=== PATIENT | male | born 1955 | race Caucasian/White ===

== ENCOUNTER 2018-03-23 21:29 | Emergency (ER) | payer OTHER ==
[~2018-03-23 21:29] MED LIST: AMLODIPINE-BEN1 EAC2 PO; AMOXICILLIN500 M3 PO; ANTIVERT12.5 M1 PO; DIAZEPAM5 M1 PO; DILAUDID2 MG PO; E-400400 IU PO; FLOMAX(MONOGRA0.4 MG PO; IBUPROFEN800 M1 PO; LIDOCAINE HCL V15 ML PO; LIORESAL 10MG T10 MG PO; MOTRIN 600 MG600 MG PO; MOTRIN800 MG PO; MULTI-DAY VITA1 EACH PO; PERCOCET 325 MG1 TA2 PO; PERCOCET 5-3251 EACH PO; VITAB121000 PO; VITAMIN A PO; VITAMIN B COMPL1 CAP PO; ZOFRAN ODT4 MG PO; [UNRECOGNIZED DRUG - OTHER] PO
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
--- NOTE | 2018-03-24 00:11 | CT SCAN REPORT ---
EXAMINATION: NONCONTRAST HEAD CT NONCONTRAST CERVICAL SPINE CT INDICATION INFORMATION: Trauma, seizure COMPARISON: 02/28/2016 TECHNIQUE: Separate noncontrast CT examinations of the head and cervical spine were performed. Coronal head CT images and coronal and sagittal cervical spine images were created at the technologist workstation. DLP: 965.86 mGy-cm FINDINGS: Head: There is no evidence of acute intracranial hemorrhage or territorial infarction. No abnormal mass-effect or midline shift is seen. [place] to white matter differentiation is well preserved. No extra-axial fluid collections are identified. The ventricles are normal in size. There is no abnormal attenuation within the brain parenchyma. No acute fracture is seen. Left-sided craniotomy changes again noted. The mastoid air cells and visualized portions of the paranasal sinuses are well-aerated. Cervical spine: There is anatomic alignment of the vertebral bodies and posterior elements. Vertebral body heights are maintained. There is disc space narrowing throughout the mid to lower cervical spine with associated endplate osteophyte formation. No evidence of acute fracture. There is a chronic pseudoarticulation of the right lateral mass of C1 with the skull base. No prevertebral soft tissue swelling. Visualized portions of the lung apices are unremarkable. The thyroid gland is unremarkable. IMPRESSION: 1. Head: No acute intracranial findings. 2. Cervical spine: Degenerative changes of the mid to lower cervical spine. No acute findings identified.
[2018-03-24 00:28] LABS: ABSOLUTE BASOPHIL COUNT 0 /CUMM (0.0-0.2); ABSOLUTE EOSINOPHIL COUNT 0.4 /CUMM (0.0-0.7); ABSOLUTE GRANULOCYTE CT 3.4 /CUMM (1.4-6.5); ABSOLUTE LYMPH COUNT 2.1 /CUMM (1.2-3.4); ABSOLUTE MONOCYTE COUNT 0.9 /CUMM (0.10-0.60); BASOPHIL % 0.5 % (0.0-2.0); EOSINOPHIL % 5.1 % (0-5); GRANULOCYTE % 50.2 % (42.2-75.2); HEMATOCRIT 38.3 % (42-52); MEAN CORPUSCULAR HGB 31.6 PG (27.0-31.0); MEAN CORPUSCULAR HGB CONC 35.5 G/DL (33.0-37.0); MEAN CORPUSCULAR VOLUME 89.1 FL (80.0-94.0); PLATELET COUNT 223 /CUMM (130-400); RBC DISTRIBUTION WIDTH 13.5 % (11.5-14.5); WHITE BLOOD CELL COUNT 6.8 /CUMM (4.8-10.8)
--- NOTE | 2018-03-24 00:28 | CT SCAN REPORT ---
EXAM: NONCONTRAST CT OF THE CHEST; NONCONTRAST CT OF THE ABDOMEN AND PELVIS INDICATION: Trauma, seizure COMPARISON: 02/28/2016 TECHNIQUE: No IV contrast was utilized. Multidetector helical imaging was performed through the chest, abdomen, and pelvis. Coronal and sagittal reformatted images were created at the technologist workstation. DLP: 795.44 mGy-cm FINDINGS: Chest: There is minimal atelectasis in the lingula. No additional consolidation bilaterally. There is redemonstration of a few juxta fissural nodules in the right lung which are without significant change from prior and most suggestive of lymph nodes. A prior left lower lobe nodule from 02/28/2016 is no longer present. No pneumothorax or pleural effusion. The visualized thyroid gland is unremarkable. There are subcentimeter mediastinal lymph nodes within the range of normal variation. Cardiac size is within normal limits; no pericardial effusion. The ascending aorta appears mildly prominent, measuring approximately 4.0 cm in diameter. No axillary lymphadenopathy is present. Abdomen/Pelvis: The liver demonstrate hypoattenuation consistent with steatosis. No intrahepatic biliary ductal dilatation. The gallbladder is unremarkable. The unenhanced spleen, pancreas, and adrenal glands are within normal limits. The unenhanced kidneys are unremarkable without hydronephrosis. No renal or ureteral calculi are present. The urinary bladder is unremarkable. The prostate and seminal vesicles are unremarkable. A curvilinear radiodense structure in the lumen of the distal stomach presumably represents ingested material. The small and large bowel are unremarkable without evidence of obstruction or pericolonic inflammatory change. The appendix is unremarkable. No free fluid or free air is identified. There is mild scattered atherosclerotic calcification. No retroperitoneal or pelvic lymphadenopathy is seen. There are severe degenerative changes of the bilateral glenohumeral joints. No acute fracture is seen. A few chronic right rib deformities are again demonstrated. Multilevel degenerative changes are present in the spine. Vertebral body heights and osseous alignment are maintained. IMPRESSION: 1. No acute traumatic findings identified in the chest, abdomen, or pelvis. 2. Mildly prominent ascending aorta measuring approximately 4.0 cm in diameter. 3. Hepatic steatosis.
--- NOTE | 2018-03-24 00:42 | RADIOLOGY REPORT ---
EXAMINATION: XR KNEE, RIGHT CLINICAL INFORMATION: Pain after trauma COMPARISON: None TECHNIQUE: Two views of the right knee. FINDINGS: Osseous alignment is anatomic. No acute fracture is seen. Chondrocalcinosis is noted in the medial and lateral compartments. Joint spaces are relatively well-preserved. No significant effusion is seen. IMPRESSION: No acute findings identified.
[2018-03-24] MEDS ORDERED: PERCOCET 5-3251 EACH PO (01:21)
[2018-03-24 01:40] VITALS: BP 118/59
== END 2018-03-24 01:46 ==
LOC: ERH 21:29
PROVIDERS: Pediatrics
DX: R56.9 Unspecified convulsions (principal); F10.129 Alcohol abuse with intoxication, unspecified
CPT/HCPCS: 73562-RT; 74176; 93005; 93010; G0480